=== PATIENT | male | born 1985 | race Caucasian/White ===

== ENCOUNTER → 2024-03-16 | Outpatient (CLI) | payer OTHER ==
--- NOTE | 2024-03-16 10:47 | US ---
EXAMINATION TYPE: US venous doppler duplex LE LT DATE OF EXAM: 03/16/2024 9:42 AM COMPARISON: NONE CLINICAL INDICATION: Male, 38 years old with history of S89.92XA INJURY LEFT LOWER LEG; lateral huizar injury, swelling, no h/o dvt SIDE PERFORMED: Left TECHNIQUE: The lower extremity deep venous system is examined utilizing real time linear array sonog clem with graded compression, doppler sonography and color-flow sonography. VESSELS IMAGED: Common Femoral Vein Deep Femoral Vein Greater Saphenous Vein * Femoral Vein Popliteal Vein Small Saphenous Vein * Proximal Calf Veins (* superficial vessels) Left Leg: Negative for DVT IMPRESSION: Grayscale, color doppler, spectral doppler imaging performed of the deep veins of the lo wer extremities. There is normal flow, compressibility, vascular waveforms.
== END | disposition home or self-care (01) ==
LOC: RADUSWWP 09:26
PROVIDERS: ATTEND Family Medicine
DX: S89.92XA Unspecified injury of left lower leg, initial encounter (principal)

== ENCOUNTER → 2024-03-16 | Outpatient (CLI) | payer OTHER ==
--- NOTE | 2024-03-16 10:44 | XR ---
EXAMINATION TYPE: XR tibia fibula LT DATE OF EXAM: 03/16/2024 CLINICAL HISTORY: pain TECHNIQUE: AP and lateral images of the left tibia and fibula are obtained. COMPARISON: None. FINDINGS: There is no acute fracture/dislocation evident. The joint spaces appear within normal bustamante its. The overlying soft tissue appears unremarkable. IMPRESSION: There is no acute fracture or dislocation seen. ICD 10 NO FRACTURE, INITIAL EVALUATION
== END | disposition home or self-care (01) ==
LOC: RADXRMAIN 10:04
PROVIDERS: ATTEND Family Medicine
DX: S89.92XA Unspecified injury of left lower leg, initial encounter (principal)

== ENCOUNTER 2024-05-12 05:46 | Day surgery (SDC) | payer OTHER ==
[2024-05-12 06:39] LABS: Glucose,Whole Blood 99 mg/dL (70-110)
[2024-05-12] MEDS: ONDANSETRON 4 MG/2 ML VIAL IVP STA (06:41)
[2024-05-12] MEDS: LACTATED RINGERS 1,000 ML BAG IV STA (06:41)
[2024-05-12] MEDS: IV FLUID CONTINUATION 1,000 ML IV ONE (06:51)
[2024-05-12] MEDS ORDERED: PROPOFOL 10 MG/ML 20 ML VIAL IV ONE (07:20)
[2024-05-12] MEDS ORDERED: GLYCOPYRROLATE 0.2 MG/ML 2 ML VIAL ONE (07:20)
[2024-05-12] MEDS ORDERED: MIDAZOLAM 2 MG/2 ML VIAL ONE (07:20)
[2024-05-12] MEDS ORDERED: LIDOCAINE 1% INJ 10MG/ML (20 ML MDV) ONE (07:20)
[2024-05-12] MEDS ORDERED: fentaNYL (PF) 50 MCG/ML 2 ML AMP ONE (07:20)
[2024-05-12] MEDS: BUPIVACAINE (PF) 0.25% 30 ML VIAL SQ ONE (07:40)
[2024-05-12] MEDS: LACTATED RINGERS 1,000 ML IV ONE (08:28)
[2024-05-12 08:46] VITALS: TEMP 97
--- NOTE | 2024-05-12 08:56 | P.OP ---
Date of Procedure: 05/12/24 Preoperative Diagnosis: hallux rigidus right foot Postoperative Diagnosis: same Procedure(s) Performed: first metatarsal phalangeal joint implant arthroplasty right foot Implants: 4.5mm x 2.5mm offset Arthrosurface 1st metatarsal head implant Anesthesia: LAKIAA Surgeon: Krishan Schaeffer Estimated Blood Loss (ml): 1 Pathology: none sent Condition: stable Disposition: PACU Description of Procedure: The patient was brought into the operating room and placed on table supine position. Timeout was taken to confirm correct patient identifiers, correct laterally surgery, and correct procedure. When all staff in the room were in agreement the timeout, the patient was induced and placed under general anesthesia. A well-padded tourniquet was placed on the ankle and then 20 mL of 0.25% Marcaine was injected as an ankle block. The foot was then prepped and d raped in the usual manner. The foot was exsanguinated and the tourniquet inflated to 250 mmHg. Attention was directed over the dorsomedial aspect of the first metatarsal phalangeal joint, where a linear incision was made between the long extensor tendon and the neurovascular structures. The incision was deepened down to the subcutaneous tissue careful to identify, avoid, and retract any neurovascular structures and cauterize any bleeding vessels. Blunt dissection was then carried down to the periosteum and capsule around the first metatarsal phalangeal joint. A linear periosteal and capsular incision was made medial to the extensor tendon. The periosteal and capsular tissues were reflected from the osseous attachments of the first metatarsal head and base of the proximal phalanx. Visual inspection of the articular surface of the first metatarsal head showed greater than 50% full-thickness erosion of the articular cartilage and thinning of the remainder cartilage with fraying on the plantar aspect. At this point the decision was made to proceed with implant arthroplasty of the first metatarsal head. A sagittal saw was used to resect the osteophytes of the dorsal aspect of the first metatarsal head but not aggressively so I did not disrupt the bony foundation for the implant placement. Guidewires placed in the central aspect of the first metatarsal head and, under fluoroscopy, guided in the first metatarsal shaft parallel to the long axis. Once the pin was properly positioned the reamer was inserted and taken down to proper depth. The tap was inserted and taken down to the laser line when aligned up with the articular cartilage surface. Then the implant was inserted it was taken down to the laser line at the articular surface and then advanced 1 additional millimeter for decompression. The reamer was placed over the guidewire and then activated and advanced until it stopped on the implant. The trial was placed and showed proper fit. There was increased range of motion the first metatarsal phalangeal joint. The sesamoid apparatus glided normally with dorsiflexion of the first metatarsal phalangeal joint. With the trial implants still in place the exc essive bone medially laterally and plantarly was resected carefully so as not to disrupt the shelf of bone with the implant would sit. Once completed the trial was removed and the area thoroughly irrigated with antibiotic saline. The joint implant was then positioned and placed into the anchor. And then impacted into place. Fluoroscopy was then taken that show the implant properly aligned. A lateral view was also done with the first metatarsal phalangeal joint maximally dorsiflexed to show how much motion was available. The wound is then thoroughly irrigated with antibiotic saline. The capsule was repaired with 0 Vicryl. Subcu closure was done with 3-0 Monocryl. And skin closure was done with 4-0 Stratafix in a running subcuticular manner. Dermal glue was placed over the incision and allowed to dry. Steri-Strips were then applied across incision. An Arthrex jumpstart dressing was applied over the incision and then a dry sterile dressing applied to the foot. The tourniquet was released and capillary refill return to all digits on the left foot. The patient tolerated the above procedure and anesthesia well. Patient left the operating room to recovery with vital signs stable
[2024-05-12 09:21] VITALS: RESP 16
[2024-05-12 09:36] VITALS: BP 120/69; PULSE 61
== END 2024-05-12 09:57 | disposition home or self-care (01) ==
LOC: OR 05:46
PROVIDERS: ATTEND Podiatrist

== ENCOUNTER 2024-06-09 10:59 | Day surgery (SDC) | payer OTHER ==
[~2024-06-09 10:59] MED LIST: LIDOCAINE 1% (10MG/ML) FOR IV START INTRADERMA PRN; MIDAZOLAM 2 MG/2 ML VIAL IV PRN; Pre Op ABX Message 1 EACH MISC MISCELLANE ONE; fentaNYL (PF) 50 MCG/ML 2 ML AMP IVP PRN
[2024-06-09] MEDS: IV FLUID CONTINUATION 1,000 ML IV ONE (11:10)
[2024-06-09 11:21] VITALS: RESP 16
[2024-06-09] MEDS: DEXAMETHASONE SOD PHOSPHATE 4 MG/ML 1 ML VIAL IV ONE (11:26)
[2024-06-09] MEDS: ONDANSETRON 4 MG/2 ML VIAL IVP ONE (11:26)
[2024-06-09] MEDS: LACTATED RINGERS 1,000 ML IV SCH (11:27)
[2024-06-09] MEDS ORDERED: PROPOFOL 10 MG/ML 20 ML VIAL IV ONE (11:37)
[2024-06-09] MEDS ORDERED: LIDOCAINE 1% INJ 10MG/ML (20 ML MDV) ONE (11:37)
[2024-06-09] MEDS ORDERED: fentaNYL (PF) 50 MCG/ML 2 ML AMP ONE (11:37)
[2024-06-09] MEDS ORDERED: MIDAZOLAM 2 MG/2 ML VIAL ONE (11:37)
[2024-06-09] MEDS ORDERED: SUCCINYLCHOLINE CHLORIDE 200 MG/10 ML VIAL IV ONE (11:37)
[2024-06-09] MEDS: BUPIVACAINE (PF) 0.25% 30 ML VIAL SQ ONE (11:53)
[2024-06-09] MEDS: SODIUM CHLORIDE 0.9% IRRIGATION ONE (11:55)
[2024-06-09] MEDS: CEFAZOLIN IRRIGATION ONE (11:55)
[2024-06-09] MEDS: SODIUM CHLORIDE 0.9% 50 ML with ceFAZolin 2,000 MG IV ONE (11:58)
[2024-06-09 12:27] VITALS: TEMP 97
[2024-06-09] MEDS: HYDROmorphone 0.5 MG/0.5 ML SYRINGE IVP PRN (12:31)
[2024-06-09] MEDS: LACTATED RINGERS 1,000 ML IV ONE (13:06)
[2024-06-09 13:50] VITALS: BP 119/74; PULSE 46
--- NOTE | 2024-06-09 15:09 | P.OP ---
Date of Procedure: 06/09/24 Preoperative Diagnosis: cellulitis right foot Postoperative Diagnosis: same Procedure(s) Performed: incision and drainage right foot Implants: none Anesthesia: SCAR Surgeon: Krishan Schaeffer Estimated Blood Loss (ml): 2 Pathology: none sent Condition: stable Disposition: PACU Description of Procedure: The patient brought into the operative room placed on the supine position. Timeout was taken to confirm correct patient identifiers, correct laterally of surgery, and correct procedure. Once staff in the room were in agreement with timeout the patient was induced placed under general anesthesia. A well-padded tourniquet was placed on the right ankle. 18 mL 0.25% Marcaine was dressing the forefoot block. Right foot was then prepped and draped usual manner. The foot was exsanguinated and the tourniquet inflated to 250 motors mercury. Attention directed over the dorsomedial aspect of the first MPJ were previous incision was located. The same incision line was used and deepened directly down to the capsule. There was inflammatory tissue centrally located just above the joint line. This is all removed with Ronjair. His taken deeper down to the joint level where there was straw-colored fluid emanated from the wound without any roque purulence. At this point cultures were taken of the area for any bacterial growth. Once the drainage was completed and any inflammatory tissue removed, there is thoroughly irrigated with 3 L normal saline with 2 g of Ancef utilizing pulsatile lavage. Once completed the deep tissue was closed with 3-0 Monocryl. Skin closure done with 3-0 nylon. Nonadherent gauze and a dry sterile dressing applied to the right foot. The tourniquet was released and capillary refill return to all digits of the right foot.
== END 2024-06-09 14:20 | disposition home or self-care (01) ==
LOC: OR 10:59
PROVIDERS: ATTEND Podiatrist
DX: L03.115 Cellulitis of right lower limb (principal); E78.5 Hyperlipidemia, unspecified
CPT/HCPCS: 87070; 87205; 87075; 87077; 87186; 10060; J2250; J0330; J1100; J2405; J0690; J2003; J3010; J2704; J1171; J0665

== ENCOUNTER → 2024-08-24 | Outpatient (CLI) | payer OTHER ==
[2024-08-24 10:44] LABS: HGB 15.7 g/dL (13.0-17.0); MCH 29.7 pg (27.0-32.0); MCHC 34.9 g/dL (32.0-37.0); MCV 85.1 FL (80.0-97.0); Mean Platelet Volume 10.2 FL (9.5-12.2); NRBC Per 100 WBC 0 X 10*3/uL (0.00-0.01); Platelet Count 200 X 10*3/uL (140-440); RBC 5.29 X 10*6/uL (4.40-5.60); RDW 12.9 % (11.5-14.5); WBC 3.96 X 10*3/uL (4.50-10.00)
[2024-08-24 10:58] LABS: ALT 22 U/L (10-49); AST 24 U/L (14-35); Albumin 4.5 g/dL (3.8-4.9); Albumin/Globulin Ratio 2.14 Ratio (1.60-3.17); Alkaline Phosphatase 51 U/L (41-126); Blood Urea Nitrogen 19.2 mg/dL (9.0-27.0); Calcium 9.3 mg/dL (8.7-10.3); Carbon Dioxide 27.3 mmol/L (21.6-31.8); Chloride 107 mmol/L (96-109); Chol/HDL Ratio 3.99 Ratio; Globulin 2.1 g/dL (1.6-3.3); Glucose 90 mg/dL (70-110); LDL Cholesterol,Calculated 149.8 mg/dL (0.0-131.0); Potassium 4.4 mmol/L (3.5-5.5); Sodium 143 mmol/L (135-145); Total Bilirubin 0.5 mg/dL (0.3-1.2); Total Protein 6.6 g/dL (6.2-8.2); VLDL Calculation 13.52 mg/dL (5.00-40.00)
== END | disposition home or self-care (01) ==
LOC: LABWHC1 07:22
PROVIDERS: ATTEND Family Medicine
DX: Z00.00 Encounter for general adult medical examination without abnormal findings (principal)
CPT/HCPCS: 36415; 80053; 80061; 85027